=== PATIENT | female | born 1990 | race Two or more races ===

== ENCOUNTER 2019-03-14 13:29 | Emergency (ER) | payer SELFPAY ==
[~2019-03-14] VITALS: Ht 165.1 cm; Wt 69.9 kg
--- NOTE | 2019-03-14 13:33 | NUR ---
PT [id number], FROM THE HOTEL, ETOH, BOTTLES OF VODKA FOUND IN THE ROOM, PT IS AAOX2, NOT IN RESPIRATORY DISTRESS, HOOKED TO MONITOR, KEPT RESTED AND COMFORTABLE, WILL CONTINUE TO MONITOR.
--- NOTE | 2019-03-14 14:28 | NUR ---
SEEN AND EXAMINED BY
--- NOTE | 2019-03-14 16:14 | NUR ---
PT ASLEEP ON BED, EASILY AROUSABLE, WILL CONTINUE TO MONITOR.
[2019-03-14 18:33] VITALS: BP 118/74
== END 2019-03-14 18:34 | disposition home or self-care (01) ==
LOC: ER 13:29
DX: F10.29 Alcohol dependence with unspecified alcohol-induced disorder (principal); Y90.8 Blood alcohol level of 240 mg/100 ml or more
CPT/HCPCS: 36415; 80307; 99283; J7030; G0480